=== PATIENT | female | born 1960 | race Two or more races ===

== ENCOUNTER 2024-07-22 15:12 | Outpatient (AMB) | payer MEDICAID, SELFPAY ==
[2024-07-22 15:20] VITALS: BP 143/74; PULSE 75; RESP 19; TEMP 36.4; O2SAT 96; BMI 31.9
--- NOTE | 2024-07-22 15:20 | ORTHONT_ITS ---
Vital signs 07/22/24 15:20 Height 1.55 m Height Method Stated Weight 76.714 kg Weight Measurement Method Standing Scale BMI 31.9 BP 143/74 H Blood Pressure Source Automatic Cuff Blood Pressure Location Right Upper Arm Position Sitting Respiration 19 Pulse 75 Pulse Source Monitor Temp 97.6 F Temp Source Temporal Artery Scan Pulse Oximetry (%) 96 Oxygen Delivery Method Room Air Med/Allergies Allergies & Medications Allergies NKA* Allergy (Uncoded 07/22/24 15:21) Medication Reconciliation lisinopril 20 mg tablet 20 mg PO QDAY #0 tabs 05/09/14 [History Confirmed 07/22/24] lovastatin 20 mg tablet (Mevacor) 20 mg PO HS #0 tabs 05/09/14 [History Confirmed 07/22/24] metformin 500 mg tablet (Glucophage) 500 mg PO BIDAC #0 tabs 05/09/14 [History Confirmed 07/22/24] amlodipine 5 mg tablet 5 mg PO QDAY 01/01/24 [History Confirmed 07/22/24] dapagliflozin propanediol 10 mg tablet (Farxiga) 10 mg PO QDAY 01/01/24 [History Confirmed 07/22/24] meloxicam 7.5 mg tablet 7.5 mg PO QDAY #45 tabs 01/01/24 [Rx Confirmed 07/22/24] Exam Exam Patient is in no acute distress and is cooperative with the examination today. Breathing is nonlabored. In no respiratory distress. Bilateral extremities were evaluated and demonstrates sensation intact to light touch. Palpable pedal pulses are present. No significant edema is present. Bilateral hips were examined. The patient has no pain with log roll of the hips. Internal rotation to 30 degrees and external rotation to 30 degrees is painless. Negative FADIR. The left knee was examined. The left knee is in [varus] alignment. Range of motion from [0-115] degrees. Knee is stable to varus and valgus as well as AP translation with <5mm. Patient has a [negative] McMurrays. There is [no] pain with patellofemoral compression and [no] crepitus noted. The knee is [tender] to palpation [medially]. The right knee was also examined. The right knee is in [varus] alignment. Range of motion from [0-120] degrees. Knee is stable to varus and valgus as well as AP translation with <5mm. Patient has a [negative] McMurrays. There is [no] pain with patellofemoral compression and [no] crepitus noted. The knee is [tender] to palpation [medially]. There is demonstrates bilateral joint space narrowing medially and laterally. There is complete obliteration of the medial joint space. Varus deformity is present Assessment and Plan Problem List (1) Degenerative arthritis of knee, bilateral: Status: Acute Plan: Patient Is a pleasant 63-year-old female with bilateral knee pain and bilateral knee arthritis. She would like to consider surgery she is failed conservative treatment with injections, and anti-inflammatories. We thus discussed total knee replacement is a reasonable option, she reports she wants to start on the right as this hurts more. The nature and purpose of the total knee replacement, alternative method(s) of treatment, the material risks involved, and the possibility of complications were fully explained to the patient. The patient does NOT have any of the following contraindications to TKA: - Active infection of the knee joint, OR - Active systemic bacteremia, OR - Active skin infection or open wound at surgical site, OR - Neuropathic arthritis, OR - Severe, rapidly progressive neurological disease, OR - Severe medical condition that makes risks of surgery outweigh the potential benefit The patient was told the most common risks and complications associated with a total knee replacement include, but are not limited to: blood clots in the leg, fatal pulmonary embolism, dislocation of the prosthesis, intraoperative and postoperative fractures of the femur or tibia, infection, failure of the prosthesis or grafting materials, complications from anesthesia, reactions to blood transfusions, postoperative leg length inequality, instability of the knee replacement, nerve damage or injury, vascular injury, delayed wound healing, infection, other injury or even . In addition, there are risks associated with anesthesia given during this operation. Also, the patient was told that after undergoing a total knee replacement there may still be persistent pain or disability. The patient was informed that the success of this operation in part depends upon the mechanical devices which are going to be implanted and that these devices can fail or malfunction, and may need to be repaired or replaced and there are no guarantees as to the longevity of this device or its parts and that it or its parts could fail prematurely. The patient was also notified that during the course of surgery, there may be a need to use bone graft from donors, and that any bone graft used will be carefully screened for communicable diseases, including AIDS, hepatitis, Brett-Creutzfeldt, or other diseases, but despite the screening procedures, there is a small chance that they could contract one of these diseases. Finally, the patient was asked to follow completely and fully with all advice and recommended treatments, and that recovery and ultimate outcome are affected by their compliance with recommended treatment. We discussed the risks, benefits and treatment alternatives, and the patient is interested in proceeding with surgery. We will try to set this up as expeditiously as possible. Office Procedures GNS Level of Care Nursing/Assessment Patient Status: Established Patient Nursing Assessment/Reassesment: Medication Reconciliation, Update PMH in EMR and Vital Signs Coordination of Care: Complex Care and Chronic Disease 1-5, Education Complex Pt/Fam, Consent,records obtained, informed consent, Results/Orders obtained and Staff clarify orders Special Needs: Language special needs Established Patient Charge Established Patient Point Assignment: 95 Established Patient Point Charge: EP Level 3 (80-115) MA Intake Visit Data Collection New Patient or Established: Established Patient (seen at [facility] within 3 years) Reason for Visit:: 3 MONTH FOLLOW UP Seen by Clinical Staff ONLY (RN/MA): No Verbal consent obtained for Telemed visit?: No Senior Sales Associate Required: Yes PCP or OBGYN visit in last 3 months: Yes Hx Now: No Do You Feel Safe at Home: Yes Authorities Contacted: N/A Questionairres Past Medical History Past Medical History Have you ever been diagnosed with any of the following: Neurological Problems Transient Ischemic Attacks (TIA): No Seizures: No Cardiology Problems Hypercholesterolemia: Yes Congestive Heart Failure: No Hypertension: Yes Respiratory Problems Chronic Obstructive Pulmonary Disease (COPD): No Smoking: No Smoking Exposure: No Genital/Urinary Problems Renal Disease: No Endocrine Problems Diabetes Mellitus Type 1: No Diabetes Mellitus Type 2: Yes Other Problems Blood Transfusions: No Blood Transfusion Reaction: No Anesthesia Reactions: No Chicken Pox: Yes Subjective Visit Visit for: follow up visit, knee and injections Immunization / Flu Flu Vaccine in the Last 12 Months: No Flu Vaccine Exclusion Criteria: No Exclusion Criteria History of Present Illness Chief complaint: F/U ON KNEE INJECTIONS Patient is a 64-year-old female with bilateral knee pain. The pain is affecting her quality life and happiness. She would like to start On the right side. She has tried anti-inflammatories, injections, and physical therapy. She reports the pain is affecting her quality life and happiness and single thus like to proceed with surgery Pain Pain level (0-10): 0 Ambulatory data Ambulatory device: none Treatments Improvement with previous injections: No Improvement with PT: No Improvement with NSAIDS: n/a Review of Systems Review of Systems: All systems negative unless otherwise noted in HPI.
== END 2024-07-22 15:35 | disposition home or self-care (01) ==
LOC: HODSRG 15:12
PROVIDERS: PCP Physician Assistant; Referring Provider Physician Assistant; Supervising Provider Orthopaedic Surgery Adult Reconstructive Orthopaedic Surgery; Visit Provider Orthopaedic Surgery Adult Reconstructive Orthopaedic Surgery
DX: M17.0 Bilateral primary osteoarthritis of knee (principal); M25.562 Pain in left knee; M25.561 Pain in right knee; I10 Essential (primary) hypertension; E78.00 Pure hypercholesterolemia, unspecified; E11.9 Type 2 diabetes mellitus without complications
CPT/HCPCS: 99213; G0463

== ENCOUNTER → 2024-09-09 | Outpatient (CLI) | payer MEDICAID, SELFPAY ==
--- NOTE | 2024-09-09 14:30 | XR_ITS ---
Examination: CT right lower extremity, without contrast. 2-D sagittal reconstructions. 2-D coronal reconstructions. 3-D reconstructions. Date and time of exam:September 01, 2024 1525 hrs. Indications: Right knee pain several years diagnosis osteoarthritis CTDI: vol (mGy):3122 DLP: (mGycm):1087 Technique: Multiple 1.25 mm axial sections of the right lower extremity without intravenous contrast have been obtained. 2-D sagittal and coronal reconstructions have been obtained. 3-D reconstructions have been obtained. Low dose protocols were performed. One or more of the following dose reduction techniques were used; automated exposure control, adjustment of the mA and/or KV according to patient size, use of iterative reconstruction technique. Findings: Significant osteopenia Moderate narrowing right hip joint No right hip fracture or dislocation Advanced tricompartment osteoarthritis right knee, severe narrowing medial joint space No fracture No patellar dislocation Impression: Advanced tricompartment right knee osteoarthritis
== END | disposition home or self-care (01) ==
LOC: CCTX 13:04
PROVIDERS: PCP Physician Assistant; Referring Provider Orthopaedic Surgery Adult Reconstructive Orthopaedic Surgery; Visit Provider Orthopaedic Surgery Adult Reconstructive Orthopaedic Surgery
DX: M17.12 Unilateral primary osteoarthritis, left knee (principal); M17.11 Unilateral primary osteoarthritis, right knee
CPT/HCPCS: 73700

== ENCOUNTER 2024-09-20 10:56 | Outpatient (AMB) | payer MEDICAID, SELFPAY ==
[2024-09-20 11:11] VITALS: BP 121/75; PULSE 64; RESP 18; TEMP 36.3; O2SAT 96; BMI 31.3
--- NOTE | 2024-09-20 11:11 | ORTHONT_ITS ---
Vital signs 09/20/24 11:11 Height 1.55 m Height Method Stated Weight 75.325 kg Weight Measurement Method Standing Scale BMI 31.3 BP 121/75 Blood Pressure Source Automatic Cuff Blood Pressure Location Right Upper Arm Position Sitting Respiration 18 Pulse 64 Pulse Source Monitor Temp 97.3 F Temp Source Temporal Artery Scan Pulse Oximetry (%) 96 Oxygen Delivery Method Room Air Med/Allergies Allergies & Medications Allergies NKA* Allergy (Uncoded 09/20/24 11:12) Medication Reconciliation lisinopril 20 mg tablet 20 mg PO QDAY #0 tabs 05/09/14 [History Confirmed 09/20/24] lovastatin 20 mg tablet (Mevacor) 20 mg PO HS #0 tabs 05/09/14 [History Confirmed 09/20/24] metformin 500 mg tablet (Glucophage) 500 mg PO BIDAC #0 tabs 05/09/14 [History Confirmed 09/20/24] amlodipine 5 mg tablet 5 mg PO QDAY 01/01/24 [History Confirmed 09/20/24] dapagliflozin propanediol 10 mg tablet (Farxiga) 10 mg PO QDAY 01/01/24 [History Confirmed 09/20/24] meloxicam 7.5 mg tablet 7.5 mg PO QDAY #45 tabs 01/01/24 [Rx Confirmed 09/20/24] Exam Exam Patient is in no acute distress and is cooperative with the examination today. Breathing is nonlabored. In no respiratory distress. Bilateral extremities were evaluated and demonstrates sensation intact to light touch. Palpable pedal pulses are present. No significant edema is present. Bilateral hips were examined. The patient has no pain with log roll of the hips. Internal rotation to 30 degrees and external rotation to 30 degrees is painless. Negative FADIR. The left knee was examined. The left knee is in [varus] alignment. Range of motion from [0-115] degrees. Knee is stable to varus and valgus as well as AP translation with <5mm. Patient has a [negative] McMurrays. There is [no] pain with patellofemoral compression and [no] crepitus noted. The knee is [tender] to palpation [medially]. The right knee was also examined. The right knee is in [varus] alignment. Range of motion from [0-120] degrees. Knee is stable to varus and valgus as well as AP translation with <5mm. Patient has a [negative] McMurrays. There is [no] pain with patellofemoral compression and [no] crepitus noted. The knee is [tender] to palpation [medially]. There is demonstrates bilateral joint space narrowing medially and laterally. There is complete obliteration of the medial joint space. Varus deformity is present Assessment and Plan Problem List (1) Degenerative arthritis of knee, bilateral: Status: Acute Plan: Patient Is a pleasant 63-year-old female with bilateral knee pain and bilateral knee arthritis. She would like to consider surgery she is failed conservative treatment with injections, and anti-inflammatories. We thus discussed total knee replacement is a reasonable option, she reports she wants to start on the right as this hurts more. The nature and purpose of the total knee replacement, alternative method(s) of treatment, the material risks involved, and the possibility of complications were fully explained to the patient. The patient does NOT have any of the following contraindications to TKA: - Active infection of the knee joint, OR - Active systemic bacteremia, OR - Active skin infection or open wound at surgical site, OR - Neuropathic arthritis, OR - Severe, rapidly progressive neurological disease, OR - Severe medical condition that makes risks of surgery outweigh the potential benefit The patient was told the most common risks and complications associated with a total knee replacement include, but are not limited to: blood clots in the leg, fatal pulmonary embolism, dislocation of the prosthesis, intraoperative and postoperative fractures of the femur or tibia, infection, failure of the prosthesis or grafting materials, complications from anesthesia, reactions to blood transfusions, postoperative leg length inequality, instability of the knee replacement, nerve damage or injury, vascular injury, delayed wound healing, infection, other injury or even . In addition, there are risks associated with anesthesia given during this operation. Also, the patient was told that after undergoing a total knee replacement there may still be persistent pain or disability. The patient was informed that the success of this operation in part depends upon the mechanical devices which are going to be implanted and that these devices can fail or malfunction, and may need to be repaired or replaced and there are no guarantees as to the longevity of this device or its parts and that it or its parts could fail prematurely. The patient was also notified that during the course of surgery, there may be a need to use bone graft from donors, and that any bone graft used will be carefully screened for communicable diseases, including AIDS, hepatitis, Brett-Creutzfeldt, or other diseases, but despite the screening procedures, there is a small chance that they could contract one of these diseases. Finally, the patient was asked to follow completely and fully with all advice and recommended treatments, and that recovery and ultimate outcome are affected by their compliance with recommended treatment. We discussed the risks, benefits and treatment alternatives, and the patient is interested in proceeding with surgery. We will try to set this up as expeditiously as possible. Office Procedures GNS Level of Care Nursing/Assessment Patient Status: Established Patient Nursing Assessment/Reassesment: Medication Reconciliation, Update PMH in EMR and Vital Signs Coordination of Care: Complex Care and Chronic Disease 1-5, Education Complex Pt/Fam, Consent,records obtained, informed consent, Results/Orders obtained and Staff clarify orders Special Needs: Language special needs Established Patient Charge Established Patient Point Assignment: 95 Established Patient Point Charge: Level 3 (80-115) MA Intake Visit Data Collection New Patient or Established: Established Patient (seen at [facility] within 3 years) Reason for Visit:: PRE OP R TKA 09/26 SX DATE Seen by Clinical Staff ONLY (RN/MA): No Engineering Psychologist Required: Yes PCP or OBGYN visit in last 3 months: Yes Hx Now: No Do You Feel Safe at Home: Yes Authorities Contacted: N/A Questionairres Past Medical History Past Medical History Have you ever been diagnosed with any of the following: Neurological Problems Transient Ischemic Attacks (TIA): No Seizures: No Cardiology Problems Hypercholesterolemia: Yes Congestive Heart Failure: No Hypertension: Yes Respiratory Problems Chronic Obstructive Pulmonary Disease (COPD): No Smoking: No Smoking Exposure: No Genital/Urinary Problems Renal Disease: No Endocrine Problems Diabetes Mellitus Type 1: No Diabetes Mellitus Type 2: Yes Other Problems Blood Transfusions: No Blood Transfusion Reaction: No Anesthesia Reactions: No Chicken Pox: Yes Subjective Visit Visit for: follow up visit and knee Immunization / Flu Flu Vaccine in the Last 12 Months: No Flu Vaccine Exclusion Criteria: No Exclusion Criteria History of Present Illness Chief complaint: F/U ON KNEE INJECTIONS Patient is a 64-year-old female with bilateral knee pain. The pain is affecting her quality life and happiness. She would like to start On the right side. She has tried anti-inflammatories, injections, and physical therapy. She reports the pain is affecting her quality life and happiness. She is scheduled for surgery next week and would like to go home if possible. Pain Pain level (0-10): 6 Pain duration: ALL DAY Pain location: inside (medial) and anterior Pain quality: dull, aching and burning Pain timing: increases with activity Ambulatory data Ambulatory device: none Treatments Improvement with previous injections: No Improvement with PT: No Improvement with NSAIDS: no Review of Systems Review of Systems: All systems negative unless otherwise noted in HPI.
== END 2024-09-20 11:17 | disposition home or self-care (01) ==
LOC: HODSRG 10:56
PROVIDERS: PCP Physician Assistant; Referring Provider Physician Assistant; Supervising Provider Orthopaedic Surgery Adult Reconstructive Orthopaedic Surgery; Visit Provider Orthopaedic Surgery Adult Reconstructive Orthopaedic Surgery
DX: M17.0 Bilateral primary osteoarthritis of knee (principal); I10 Essential (primary) hypertension; E78.00 Pure hypercholesterolemia, unspecified
CPT/HCPCS: 99213; G0463

== ENCOUNTER 2024-09-26 05:30 | Day surgery (SDC) | payer MEDICAID, SELFPAY ==
[2024-09-22 09:18] VITALS: BMI 30.4
[2024-09-22 10:58] LABS: Basophils # (Auto) 0.1 Thou/mm3 (0.0-0.2); Basophils % (Auto) 1 % (0-2.5); Eosinophils # (Auto) 0.1 Thou/mm3 (0.0-0.5); Eosinophils % (Auto) 1 % (0-10); Hematocrit 40.3 % (36.0-46.0); Hemoglobin 12.7 g/dL (12.0-16.0); Immature Granulocytes % (Auto) 1 % (0-0); Immature Granulocytes Auto 0.07 Thou/mm3 (0.00-0.00); Lymphocytes # (Auto) 3.5 Thou/mm3 (1.0-4.8); Lymphocytes % (Auto) 36 % (10-50); Mean Corpuscular HGB Conc 31.5 g/dl (31.0-37.0); Mean Corpuscular Hemoglobin 27.7 pg (25.0-35.0); Mean Corpuscular Volume 88 fL (80-100); Monocytes # (Auto) 0.9 Thou/mm3 (0.0-0.8); Monocytes % (Auto) 9 % (0-12); Neutrophils # (Auto) 5.3 Thou/mm3 (1.8-7.7); Neutrophils % (Auto) 53 % (37-80); Nucleated Red Blood Cell % 0 /100 WBC (0); Platelet Count 283 Thou/mm3 (140-440); RDW Standard Deviation 46.5 fL (36.4-46.3); Red Blood Count 4.58 Miln/mm3 (4.00-5.20); White Blood Count 9.9 Thou/mm3 (3.6-11.0)
[2024-09-22 11:12] LABS: INR 0.9 (0.9-1.3); Partial Thromboplastin Time 23.6 Seconds (22.0-36.0); Prothrombin Time 10.1 Seconds (9.0-12.2)
[2024-09-22 11:27] LABS: Alanine Aminotransferase 34 U/L (10-49); Albumin, Serum 4.3 gm/dL (3.4-4.8); Albumin/Globulin Ratio 1.8 (1.2-2.2); Alkaline Phosphatase 121 U/L (46-116); Anion Gap 10 (7-16); Aspartate Amino Transferase 25 U/L (0-34); BUN/Creatinine Ratio 29 Ratio (12-20); Bilirubin,Total 0.8 mg/dL (0.3-1.2); Blood Urea Nitrogen 20 mg/dL (9-23); Calcium 9.7 mg/dL (8.3-10.6); Calcium (Corrected) 9.7 mg/dL (8.5-10.1); Carbon Dioxide 25.4 mMol/L (20.0-31.0); Chloride 110 mMol/L (98-107); Creatinine (Component) 0.7 mg/dL (0.6-1.3); Estimated Creatinine Clearance 77.3 mL/min (>60); Globulin 2.4 gm/dL (2.3-3.5); Glucose 109 mg/dL (74-106); Osmolality,Calculated 292 (275-295); Potassium 4.2 mMol/L (3.4-5.1); Sodium 145 mMol/L (136-145); Total Protein 6.7 gm/dL (5.7-8.2); eGFR > 60 See Note
[2024-09-26] VITALS (17 sets, daily range): BP systolic 114–150; BP diastolic 64–90; PULSE 58–80; RESP 12–20; TEMP 36.1–37.2; O2SAT 92–99; BMI 33.0
[2024-09-26] MEDS: MELOXICAM 7.5 MG TABLET PO (07:37)
[2024-09-26] MEDS: RINGERS LACTATED 1000 ML 1,000 ML 20 ML IV (07:38)
[2024-09-26] MEDS: ACETAMINOPHEN 325 MG TABLET 650 MG PO (07:38)
[2024-09-26] MEDS: PREGABALIN 75 MG CAPSULE PO (07:38)
--- NOTE | 2024-09-26 07:47 | SUR.PREOP ---
Patient expressed gratitude for prayer before their procedure.
--- NOTE | 2024-09-26 08:05 | SUR.PREOP ---
Patient expressed gratitude for prayer before their procedure.
--- NOTE | 2024-09-26 09:26 | ESOP_ITS ---
Date of Procedure 09/26/24 Pre Op Diagnosis right knee osteoarthritis Post Op Diagnosis right knee osteoarthritis Procedure right total knee replacement gabi Findings full thickness cartilage loss and osteophytes Procedure Description Indication: The patient is a 64 year old who has a long history of right knee pain. X-rays show degenerative arthritis involving the knee. Over the past several years the patient has had increasing pain, progressive limitation in function. He has failed conservative measures including activity modification, physical therapy, injections, anti-inflammatories, and assistive devices. After a lengthy discussion of the risks and benefits, the patient presents now for total knee replacement. The nature and purpose of the total knee replacement, alternative method(s) of treatment, the material risks involved, and the possibility of complications were fully explained to the patient. The patient was told the most common risks and complications associated with a total knee replacement include, but are not limited to blood clots in the leg, fatal pulmonary embolism, dislocation of the prosthesis, intraoperative and postoperative fractures of the femur or tibia, infection, failure of the prosthesis or grafting materials, complications from anesthesia, reactions to blood transfusions, postoperative leg length inequality, instability of the knee replacement, nerve damage or injury, vascular injury, delayed wound healing, infections, other injury or even . In addition, there are risks associated with anesthesia given during this operation, temporary or permanent numbness on the skin lateral to the incision can be a complication unique to total knee surgery, and kneeling can be painful after knee replacement surgery. Also, the patient was told that after undergoing a total knee replacement there may still be pain or disability. We discussed with the patient that we will be using a robot-assisted technology. We discussed that there is a possibility of converting to manual instrumentation. The patient was informed that the success of this operation in part depends upon the mechanical devices which are going to be implanted and that these devices can fail or malfunction, and may need to be repaired or replaced and there are no guarantees as to the longevity of this device or its part and that it or its parts could fail prematurely. Finally, the patient was asked to follow completely and fully with all advice and recommended treatments, and that recovery and ultimate outcome are affected by their compliance with recommended treatment. Surgical technique: Patient was marked and consented in the pre-operative area. The patient was brought to the operating room and placed on the operating table in a supine position. Prior to positioning, a timeout procedure was performed between the surgeon, the anesthesiologist, and the nursing staff where the patient and the operative side were identified and confirmed. After adequate general anesthetic was obtained, the right lower extremity was prepped and draped in the usual sterile fashion. A weight based dose of Cefazolin were administered within 1 hour prior to incision. The robot was preregistered and calirated before the incision. The extremity was exsanguinated with an esmarch badge and tourniquet inflated to 250mmHg. A midline incision was made. A median parapatellar arthrotomy was made. The patella was subluxed laterally. A medial release was performed to expose the medial tibia. His femoral and tibial pins were placed through an intra incisional manner for both cases. Every effort was made to ensure that the distalmost aspect of the pin was hung in the second cortex. The arrays were then tightened several times to ensure that it was fixed for the remainder of the case. Both femoral and tibial checkpoints were then placed. We then went through the registration process of the bone. We then assessed the knee deformity and attempted to correct it. We also used the robot to aid in judging laxity in both extension and flexion. Final based on laxity and alignment we changed the preoperative assessment to obtain proper proper implant positioning and to correct deformity. Attention was then placed to the tibia. We made a tibial cut using the robot ensuring that both the MCL and the patella tendon were protected with retractors. We then went to the femur and made the posterior cut followed by the anterior cut and the anterior chamfer. The bone was then removed and we made a distal femur cut and a posterior chamfer cut. We verified all cuts. A trial reduction was performed with a size 2 femoral component and a size 2 keeled tibial component. The patella tracked centrally, and no lateral retinacular release was necessary. The trial implants were removed. The arrays, pins, and checkpoints were all removed. We performed a verification that all pins were removed. The cut bone surfaces were lavaged. A size 2 right femoral component, a size 2 keeled tibial component were impacted into position. The knee was felt to be well balanced in the sagittal and coronal plane. The final [2x12] mm cruciate- substituting articular insert was impacted into the tibial tray. The knee was brought out to full extension, flexed up to 120 degrees. It was stable to varus and valgus stress and appropriately balanced in flexion and extension. The wounds were copiously irrigated following deflation of tourniquet. The medial retinaculum was reapproximated with #1 vicryl and quill. The subcutaneous tissues were closed with 0 and 2-0 interrupted Vicryl. The skin was closed with 3-0 Monofilament V loc suture. A sterile dressing was applied. The patient was transferred to a bed and brought to recovery in stable condition. The patient tolerated the procedure well. There were no intraoperative complications. Sponge and needle counts were correct times 2. As the attending surgeon, I attest I was present and performed the entire operation. Grafts/Implants Size 2 CR Femur Size 2 Tibia 11mm poly CS Anesthesia GETA Implants clinton Pathology / specimen None Pathology comment: none Estimated Blood Loss 150 Condition Stable Disposition same day Surgeon Surendra Smith MD Surgical Staff Operation Date: 09/26/24 07:30 Case Staff Anesthesiologist: Christiano Ritter RN First Assistant: Saloni Avery
--- NOTE | 2024-09-26 09:31 | XR_ITS ---
Examination: Right knee 2 views TECHNIQUE: AP lateral right knee 2 views Exam date and time: September 26, 2024 0932 hours INDICATIONS: Postop total right knee arthroplasty FINDINGS: Prominent osteopenia. Total right knee arthroplasty. Satisfactory alignment No fracture IMPRESSION: Total right knee arthroplasty with satisfactory alignment
--- NOTE | 2024-09-26 09:53 | SUR.PHASEI ---
0953: Pt. arrived with oral airway in place, vitals stable, breathing unlabored, no signs of distress, dressing to right knee CDI, no active bleed noted, bilateral dorsalis pedis pulses strong and regular, cap refill to bilateral toes less than 3 seconds, report received from Cosmo HERNANDEZ and MD Ritter.
[2024-09-26] MEDS: oxyCODONE HCL 5 MG IR TAB PO (10:42)
[2024-09-26] MEDS: CYCLObenzaPRINE 5 MG TABLET 10 MG PO (10:42)
--- NOTE | 2024-09-26 12:20 | SUR.PHASEII ---
report from nurse holloway. pt alert and oriented. vss. breathing even and unlabored on room air. tolerating po liquid. daughter at bedside. dressing cdi.
--- NOTE | 2024-09-26 13:01 | SUR.PHASEII ---
pt remains unchanged. vss. dressing cdi. right leg remains heaving. report to nurse jewel.
--- NOTE | 2024-09-26 14:00 | SUR.PHASEII ---
1400: Pt. AAOx4, vitals stable, breathing unlabored, no complaint of pain or nausea, dressing to right knee CDI, no active bleed noted, pt. tolerated physical therapy well, pt. tolerated sips of water well, cap refill to bilateral feet less than 3 seconds, bilateral dorsalis pedis pulses strong and regular, gave discharge instructions to the pt. and her ride, both verbalized understanding and had no further questions. Pt. left with all personal belongings.
== END 2024-09-26 14:00 | disposition home or self-care (01) ==
PROVIDERS: Anesthesiology; PCP Physician Assistant; Referring Provider Orthopaedic Surgery Adult Reconstructive Orthopaedic Surgery; Visit Provider Orthopaedic Surgery Adult Reconstructive Orthopaedic Surgery
PROC: (CPT 27447; principal; 2024-09-26 07:30)
DX: M17.11 Unilateral primary osteoarthritis, right knee (principal); M25.761 Osteophyte, right knee
CPT/HCPCS: 27447; 20985; 36415; 73560; 80053; 85025; 85610; 85730; 97162; A4217; C1713; C1776; J0690; J1100; J1885; J2250; J2405; J2704; J2795; J3010; J3490; J7030; J7120; J7999; A4648; A4649; A9270

== ENCOUNTER 2024-10-11 10:32 | Outpatient (AMB) | payer MEDICAID, SELFPAY ==
[2024-10-11 11:01] VITALS: BP 128/84; PULSE 93; RESP 18; TEMP 36.4; O2SAT 94; BMI 32.8
--- NOTE | 2024-10-11 11:01 | PD.ORTHCLVIS ---
Vital signs 10/11/24 11:01 Height 1.52 m Height Method Stated Weight 75.92 kg Weight Measurement Method Standing Scale BMI 32.8 BP 128/84 Blood Pressure Source Automatic Cuff Blood Pressure Location Left Upper Arm Position Sitting Respiration 18 Pulse 93 Pulse Source Monitor Temp 97.6 F Temp Source Temporal Artery Scan Pulse Oximetry (%) 94 L Oxygen Delivery Method Room Air Med/Allergies Allergies & Medications Allergies No Known Allergies Allergy (Verified 10/11/24 11:05) Medication Reconciliation lovastatin 20 mg tablet (Mevacor) 20 mg PO HS #0 tabs 05/09/14 [History Confirmed 10/11/24] metformin 500 mg tablet (Glucophage) 500 mg PO BIDAC #0 tabs 05/09/14 [History Confirmed 10/11/24] amlodipine 5 mg tablet 5 mg PO QDAY 01/01/24 [History Confirmed 10/11/24] dapagliflozin propanediol 10 mg tablet (Farxiga) 10 mg PO QDAY 01/01/24 [History Confirmed 10/11/24] dapagliflozin propanediol 10 mg tablet (Farxiga) 10 mg PO QDAY 09/22/24 [History Confirmed 10/11/24] lisinopril 40 mg tablet 40 mg PO QDAY 09/22/24 [History Confirmed 10/11/24] acetaminophen 500 mg tablet (Acetaminophen Extra Strength) 1,000 mg (2 x 500 mg) PO Q6H PRN pain #90 tabs 09/26/24 [Rx Confirmed 10/11/24] acetaminophen 500 mg tablet (Acetaminophen Extra Strength) 1,000 mg (2 x 500 mg) PO Q6H PRN pain #90 tabs 09/28/24 [Rx Confirmed 10/11/24] aspirin 81 mg tablet,delayed release 81 mg PO BID #60 tabs 09/28/24 [Rx Confirmed 10/11/24] doxycycline hyclate 100 mg tablet 100 mg PO BID #14 tabs 09/28/24 [Rx Confirmed 10/11/24] gabapentin 300 mg capsule 300 mg PO .qhs #30 caps 09/28/24 [Rx Confirmed 10/11/24] sennosides 8.6 mg-docusate sodium 50 mg tablet (Senna-S) 1 tab-cap PO QDAY #30 tabs 09/28/24 [Rx Confirmed 10/11/24] cyclobenzaprine 5 mg tablet 5 mg PO QHS PRN muscle spasm #30 tabs 10/11/24 [Rx Confirmed 10/11/24] oxycodone 5 mg tablet 5 mg PO Q6H PRN pain #28 tabs 10/11/24 [Rx Confirmed 10/11/24] Exam Exam Patient is in no acute distress and is cooperative with the examination today. Breathing is nonlabored. In no respiratory distress. Bilateral extremities were evaluated and demonstrates sensation intact to light touch. Palpable pedal pulses are present. No significant edema is present. Bilateral hips were examined. The patient has no pain with log roll of the hips. Internal rotation to 30 degrees and external rotation to 30 degrees is painless. Negative FADIR. Right knee incisions clean dry intact Assessment and Plan Problem List (1) Degenerative arthritis of knee, bilateral: Status: Acute Plan: Patient Is a pleasant 63-year-old female with bilateral knee pain and bilateral knee arthritis. She is doing well status post right total knee replacement We recommend physical therapy and continued DVT prophylaxis Office Procedures GNS Level of Care Nursing/Assessment Patient Status: Established Patient Nursing Assessment/Reassesment: Medication Reconciliation, Update PMH in EMR and Vital Signs Coordination of Care: Complex Care and Chronic Disease 1-5, Education Complex Pt/Fam, Consent,records obtained, informed consent, Results/Orders obtained and Staff clarify orders Established Patient Charge Established Patient Point Assignment: 95 Established Patient Point Charge: EP Level 3 (80-115) MA Intake Visit Data Collection New Patient or Established: Established Patient (seen at [facility] within 3 years) Reason for Visit:: 2 WEEK POST OP R TKA Seen by Clinical Staff ONLY (RN/MA): No Emergency Response Technician Required: Yes PCP or OBGYN visit in last 3 months: Yes Hx Now: No Do You Feel Safe at Home: Yes Authorities Contacted: N/A Questionairres Past Medical History Past Medical History Have you ever been diagnosed with any of the following: Neurological Problems Transient Ischemic Attacks (TIA): No Seizures: No Cardiology Problems Hypercholesterolemia: Yes Congestive Heart Failure: No Hypertension: Yes Respiratory Problems Chronic Obstructive Pulmonary Disease (COPD): No Smoking: No Smoking Cessation Counseling: No Smoking Exposure: No Stomache/Intestinal Problems Hepatitis: No Obesity: Yes Genital/Urinary Problems Renal Disease: No Reproductive Problems Previous Pregnancies: Yes Musculoskeletal Problems Arthritis: Yes Endocrine Problems Diabetes Mellitus Type 1: No Diabetes Mellitus Type 2: Yes Other Problems Hospitalization: Yes Shingles: No Blood Transfusions: No Blood Transfusion Reaction: No Anesthesia Reactions: No Chicken Pox: Yes Cancer: No Subjective Visit Visit for: follow up visit and post op #1 Immunization / Flu Flu Vaccine in the Last 12 Months: No Flu Vaccine Exclusion Criteria: No Exclusion Criteria History of Present Illness Chief complaint: F/U ON KNEE INJECTIONS Patient is a 64-year-old female with bilateral knee pain. She is doing well status post right total knee replacement. Pain is minimal Pain Pain level (0-10): 5 Pain duration: WITH MOVEMENT Pain location: anterior Pain quality: dull and aching Pain timing: increases with activity Ambulatory data Ambulatory device: walker Treatments Improvement with previous injections: No Improvement with PT: No Improvement with NSAIDS: no Review of Systems Review of Systems: All systems negative unless otherwise noted in HPI.
== END 2024-10-11 11:11 | disposition home or self-care (01) ==
LOC: HODSRG 10:32
PROVIDERS: PCP Physician Assistant; Referring Provider Physician Assistant; Supervising Provider Orthopaedic Surgery Adult Reconstructive Orthopaedic Surgery; Visit Provider Orthopaedic Surgery Adult Reconstructive Orthopaedic Surgery
DX: M17.0 Bilateral primary osteoarthritis of knee (principal); M25.562 Pain in left knee; M25.561 Pain in right knee; Z96.651 Presence of right artificial knee joint; I10 Essential (primary) hypertension; E78.00 Pure hypercholesterolemia, unspecified; E11.9 Type 2 diabetes mellitus without complications
CPT/HCPCS: 99213; G0463

== ENCOUNTER → 2024-10-28 | Outpatient (CLI) | payer MEDICAID, SELFPAY ==
--- NOTE | 2024-10-28 09:06 | XR_ITS ---
Examination: Knee, right , 3 views Technique: Knee AP, lateral, oblique 3 views standing Date and time of exam: October 28, 2024 0912 hours INDICATIONS: Status post knee arthroplasty one month ago, September 26, 2024 FINDINGS: Total right knee arthroplasty. Satisfactory alignment Prominent osteopenia Moderate knee effusion IMPRESSION: Total right knee arthroplasty with satisfactory alignment
== END | disposition home or self-care (01) ==
LOC: CDIM 09:01
PROVIDERS: Referring Provider Orthopaedic Surgery Adult Reconstructive Orthopaedic Surgery; Visit Provider Orthopaedic Surgery Adult Reconstructive Orthopaedic Surgery
DX: M17.11 Unilateral primary osteoarthritis, right knee (principal); Z96.651 Presence of right artificial knee joint
CPT/HCPCS: 73564

== ENCOUNTER 2024-11-08 10:45 | Outpatient (AMB) | payer MEDICAID, SELFPAY ==
--- NOTE | 2024-11-08 11:15 | ORTHONT_ITS ---
Vital signs 11/08/24 11:16 Height 1.52 m Height Method Stated Weight 72.348 kg Weight Measurement Method Standing Scale BMI 31.3 BP 160/91 H Blood Pressure Source Automatic Cuff Blood Pressure Location Right Upper Arm Position Sitting Respiration 17 Pulse 85 Pulse Source Monitor Temp 97.3 F Temp Source Temporal Artery Scan Pulse Oximetry (%) 97 Oxygen Delivery Method Room Air Med/Allergies Allergies & Medications Allergies No Known Allergies Allergy (Verified 11/08/24 11:17) Medication Reconciliation lovastatin 20 mg tablet (Mevacor) 20 mg PO HS #0 tabs 05/09/14 [History Confirmed 11/08/24] metformin 500 mg tablet (Glucophage) 500 mg PO BIDAC #0 tabs 05/09/14 [History Confirmed 11/08/24] amlodipine 5 mg tablet 5 mg PO QDAY 01/01/24 [History Confirmed 11/08/24] dapagliflozin propanediol 10 mg tablet (Farxiga) 10 mg PO QDAY 01/01/24 [History Confirmed 11/08/24] dapagliflozin propanediol 10 mg tablet (Farxiga) 10 mg PO QDAY 09/22/24 [History Confirmed 11/08/24] lisinopril 40 mg tablet 40 mg PO QDAY 09/22/24 [History Confirmed 11/08/24] acetaminophen 500 mg tablet (Acetaminophen Extra Strength) 1,000 mg (2 x 500 mg) PO Q6H PRN pain #90 tabs 09/26/24 [Rx Confirmed 11/08/24] acetaminophen 500 mg tablet (Acetaminophen Extra Strength) 1,000 mg (2 x 500 mg) PO Q6H PRN pain #90 tabs 09/28/24 [Rx Confirmed 11/08/24] aspirin 81 mg tablet,delayed release 81 mg PO BID #60 tabs 09/28/24 [Rx Confirmed 11/08/24] doxycycline hyclate 100 mg tablet 100 mg PO BID #14 tabs 09/28/24 [Rx Confirmed 11/08/24] gabapentin 300 mg capsule 300 mg PO .qhs #30 caps 09/28/24 [Rx Confirmed 11/08] sennosides 8.6 mg-docusate sodium 50 mg tablet (Senna-S) 1 tab-cap PO QDAY #30 tabs 09/28/24 [Rx Confirmed 11/08/24] cyclobenzaprine 5 mg tablet 5 mg PO QHS PRN muscle spasm #30 tabs 10/11/24 [Rx Confirmed 11/08/24] oxycodone 5 mg tablet 5 mg PO Q6H PRN pain #28 tabs 10/11/24 [Rx Confirmed 11/08/24] Exam Exam Patient is in no acute distress and is cooperative with the examination today. Breathing is nonlabored. In no respiratory distress. Bilateral extremities were evaluated and demonstrates sensation intact to light touch. Palpable pedal pulses are present. No significant edema is present. Bilateral hips were examined. The patient has no pain with log roll of the hips. Internal rotation to 30 degrees and external rotation to 30 degrees is painless. Negative FADIR. Right knee incisions clean dry intact. ROM is 0-70 degrees X-rays demonstrate a cementless total knee replacement in good alignment and position. This is from 10/28/2024 Assessment and Plan Problem List (1) Degenerative arthritis of knee, bilateral: Status: Acute Plan: Patient Is a pleasant 63-year-old female with bilateral knee pain and bilateral knee arthritis. 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 She does not work with outpatient therapy. I discussed with her that she needs to improve her motion and start therapy. I will see her in 2 to 3 weeks. I discussed with her if the range of motion does not improve I would recommend a manipulation at this time. She has not really done much at home regarding therapy or home exercises unfortunately We will see her in 2 to 3 weeks for motion check Office Procedures GNS Level of Care Nursing/Assessment Patient Status: Established Patient Nursing Assessment/Reassesment: Medication Reconciliation, Update PMH in EMR and Vital Signs Coordination of Care: Complex Care and Chronic Disease 1-5, Consent,records obtained, informed consent, Education Simp Pt/Fam, Results/Orders obtained and Staff clarify orders Special Needs: Language special needs (FRENCH ) Established Patient Charge Established Patient Point Assignment: 90 Established Patient Point Charge: EP Level 3 (80-115) MA Intake Visit Data Collection New Patient or Established: Established Patient (seen at [facility] within 3 years) Reason for Visit:: 6 WK POST OP RT TKA Seen by Clinical Staff ONLY (RN/MA): No Aerial Lineman Required: Yes PCP or OBGYN visit in last 3 months: Yes Hx Now: No Do You Feel Safe at Home: Yes Authorities Contacted: N/A Questionairres Past Medical History Past Medical History Have you ever been diagnosed with any of the following: Neurological Problems Transient Ischemic Attacks (TIA): No Seizures: No Cardiology Problems Hypercholesterolemia: Yes Congestive Heart Failure: No Hypertension: Yes Respiratory Problems Chronic Obstructive Pulmonary Disease (COPD): No Smoking: No Smoking Cessation Counseling: No Smoking Exposure: No Stomache/Intestinal Problems Hepatitis: No Obesity: Yes Genital/Urinary Problems Renal Disease: No Reproductive Problems Previous Pregnancies: Yes Musculoskeletal Problems Arthritis: Yes Endocrine Problems Diabetes Mellitus Type 1: No Diabetes Mellitus Type 2: Yes Other Problems Hospitalization: Yes Shingles: No Blood Transfusions: No Blood Transfusion Reaction: No Anesthesia Reactions: No Chicken Pox: Yes Cancer: No Subjective Visit Visit for: follow up visit and post op #2 (6 WK POST OP RT TKA ) Immunization / Flu Flu Vaccine in the Last 12 Months: Yes Flu Vaccine Exclusion Criteria: Already Received History of Present Illness Chief complaint: F/U ON KNEE INJECTIONS Patient is a 64-year-old female with bilateral knee pain. She is doing well status post right total knee replacement. Pain is minimal but her knee is stiff. She is using a walker and ROM is 0-70 degrees. She has not started outpatient therapy yet and is supposed to start in 2 days. Personal History Red flag PMH: none Pain Pain level (0-10): 7 Pain duration: 3 WEEKS Pain location: anterior Pain quality: sharp and aching Pain timing: night Associated signs & symptoms: none Ambulatory data Ambulatory device: walker Walking distance (blocks): 0 Walking distance (minutes): 10 Treatments Number of previous injections: 2 Improvement with previous injections: Yes Number of Physical Therapy sessions: 5 Improvement with PT: No Improvement with NSAIDS: n/a Review of Systems Review of Systems: All systems negative unless otherwise noted in HPI.
[2024-11-08 11:16] VITALS: BP 160/91; PULSE 85; RESP 17; TEMP 36.3; O2SAT 97; BMI 31.3
== END 2024-11-08 11:25 | disposition home or self-care (01) ==
LOC: HODSRG 10:45
PROVIDERS: PCP Physician Assistant; Referring Provider Physician Assistant; Supervising Provider Orthopaedic Surgery Adult Reconstructive Orthopaedic Surgery; Visit Provider Orthopaedic Surgery Adult Reconstructive Orthopaedic Surgery
DX: M17.0 Bilateral primary osteoarthritis of knee (principal); M25.562 Pain in left knee; M25.561 Pain in right knee; Z96.651 Presence of right artificial knee joint; I10 Essential (primary) hypertension; E78.00 Pure hypercholesterolemia, unspecified
CPT/HCPCS: 99213; G0463

== ENCOUNTER 2024-11-24 10:00 | Outpatient (AMB) | payer MEDICAID, SELFPAY ==
[2024-11-24 10:10] VITALS: BP 143/85; PULSE 92; RESP 18; TEMP 36.3; O2SAT 97; BMI 30.9
--- NOTE | 2024-11-24 10:10 | ORTHONT_ITS ---
Vital signs 11/24/24 10:10 Height 1.52 m Height Method Stated Weight 71.469 kg Weight Measurement Method Standing Scale BMI 30.9 BP 143/85 H Blood Pressure Source Automatic Cuff Blood Pressure Location Right Upper Arm Position Sitting Respiration 18 Pulse 92 Pulse Source Monitor Temp 97.3 F Temp Source Temporal Artery Scan Pulse Oximetry (%) 97 Oxygen Delivery Method Room Air Med/Allergies Allergies & Medications Allergies No Known Allergies Allergy (Verified 11/24/24 10:11) Medication Reconciliation lovastatin 20 mg tablet (Mevacor) 20 mg PO HS #0 tabs 05/09/14 [History Confirmed 11/24/24] metformin 500 mg tablet (Glucophage) 500 mg PO BIDAC #0 tabs 05/09/14 [History Confirmed 11/24/24] amlodipine 5 mg tablet 5 mg PO QDAY 01/01/24 [History Confirmed 11/24/24] dapagliflozin propanediol 10 mg tablet (Farxiga) 10 mg PO QDAY 01/01/24 [History Confirmed 11/24/24] dapagliflozin propanediol 10 mg tablet (Farxiga) 10 mg PO QDAY 09/22/24 [History Confirmed 11/24/24] lisinopril 40 mg tablet 40 mg PO QDAY 09/22/24 [History Confirmed 11/24/24] acetaminophen 500 mg tablet (Acetaminophen Extra Strength) 1,000 mg (2 x 500 mg) PO Q6H PRN pain #90 tabs 09/26/24 [Rx Confirmed 11/24/24] acetaminophen 500 mg tablet (Acetaminophen Extra Strength) 1,000 mg (2 x 500 mg) PO Q6H PRN pain #90 tabs 09/28/24 [Rx Confirmed 11/24/24] aspirin 81 mg tablet,delayed release 81 mg PO BID #60 tabs 09/28/24 [Rx Confirmed 11/24/24] doxycycline hyclate 100 mg tablet 100 mg PO BID #14 tabs 09/28/24 [Rx Confirmed 11/24/24] gabapentin 300 mg capsule 300 mg PO .qhs #30 caps 09/28/24 [Rx Confirmed 11/24] sennosides 8.6 mg-docusate sodium 50 mg tablet (Senna-S) 1 tab-cap PO QDAY #30 tabs 09/28/24 [Rx Confirmed 11/24/24] cyclobenzaprine 5 mg tablet 5 mg PO QHS PRN muscle spasm #30 tabs 10/11/24 [Rx Confirmed 11/24/24] oxycodone 5 mg tablet 5 mg PO Q6H PRN pain #28 tabs 10/11/24 [Rx Confirmed 11/24/24] Exam Exam Patient is in no acute distress and is cooperative with the examination today. Breathing is nonlabored. In no respiratory distress. Bilateral extremities were evaluated and demonstrates sensation intact to light touch. Palpable pedal pulses are present. No significant edema is present. Bilateral hips were examined. The patient has no pain with log roll of the hips. Internal rotation to 30 degrees and external rotation to 30 degrees is painless. Negative FADIR. Right knee incisions clean dry intact. ROM is 0-95 degrees X-rays demonstrate a cementless total knee replacement in good alignment and position. This is from 10/28/2024 Assessment and Plan Problem List (1) Degenerative arthritis of knee, bilateral: Status: Acute Plan: Patient Is a pleasant 63-year-old female with bilateral knee pain and bilateral knee arthritis. 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 Her range of motion is significant improved and she can get to about 90 degrees. She would like to continue with physical therapy. We previously offered her a manipulation and she wants to continue with therapy We will see her in 3 weeks for motion check Office Procedures GNS Level of Care Nursing/Assessment Patient Status: Established Patient Nursing Assessment/Reassesment: Medication Reconciliation, Update PMH in EMR and Vital Signs Coordination of Care: Complex Care and Chronic Disease 1-5, Education Complex Pt/Fam, Consent,records obtained, informed consent, Results/Orders obtained and Staff clarify orders Special Needs: Language special needs Established Patient Charge Established Patient Point Assignment: 95 Established Patient Point Charge: EP Level 3 (80-115) MA Intake Visit Data Collection New Patient or Established: Established Patient (seen at [facility] within 3 years) Reason for Visit:: F/U STIFFNESS Seen by Clinical Staff ONLY (RN/MA): No Verbal consent obtained for Telemed visit?: No Director Of Convention Services Required: Yes PCP or OBGYN visit in last 3 months: Yes Hx Now: No Do You Feel Safe at Home: Yes Authorities Contacted: N/A Questionairres Past Medical History Past Medical History Have you ever been diagnosed with any of the following: Neurological Problems Transient Ischemic Attacks (TIA): No Seizures: No Cardiology Problems Hypercholesterolemia: Yes Congestive Heart Failure: No Hypertension: Yes Respiratory Problems Chronic Obstructive Pulmonary Disease (COPD): No Smoking: No Smoking Cessation Counseling: No Smoking Exposure: No Stomache/Intestinal Problems Hepatitis: No Obesity: Yes Genital/Urinary Problems Renal Disease: No Reproductive Problems Previous Pregnancies: Yes Musculoskeletal Problems Arthritis: Yes Endocrine Problems Diabetes Mellitus Type 1: No Diabetes Mellitus Type 2: Yes Other Problems Hospitalization: Yes Shingles: No Blood Transfusions: No Blood Transfusion Reaction: No Anesthesia Reactions: No Chicken Pox: Yes Cancer: No Subjective Visit Visit for: follow up visit, post op #2 (6 WK POST OP RT TKA ) and knee Immunization / Flu Flu Vaccine in the Last 12 Months: Yes Flu Vaccine Exclusion Criteria: Already Received History of Present Illness Chief complaint: F/U STIFFNESS Patient is a 64-year-old female with bilateral knee pain. She is doing well status post right total knee replacement. Pain is minimal but her knee is stiff. She is using a walker and ROM is 0-90 degrees. She has started physical therapy and notices significant improvement Personal History Red flag PMH: BMI and none BMI Counceling provided: Yes Pain Pain level (0-10): 4 Pain duration: COMES AND GOES Pain location: inside (medial), outside (lateral), anterior and posterior Pain quality: sharp, dull and aching Pain timing: night and increases with activity Associated signs & symptoms: stiffness and none Ambulatory data Ambulatory device: cane and walker Walking distance (blocks): 0 Walking distance (minutes): 10 Treatments Number of previous injections: 2 Improvement with previous injections: No Number of Physical Therapy sessions: 5 Improvement with PT: No Improvement with NSAIDS: no Review of Systems Review of Systems: All systems negative unless otherwise noted in HPI.
== END 2024-11-24 10:15 | disposition home or self-care (01) ==
LOC: HODSRG 10:00
PROVIDERS: PCP Physician Assistant; Referring Provider Physician Assistant; Supervising Provider Orthopaedic Surgery Adult Reconstructive Orthopaedic Surgery; Visit Provider Orthopaedic Surgery Adult Reconstructive Orthopaedic Surgery
DX: M17.0 Bilateral primary osteoarthritis of knee (principal); M25.562 Pain in left knee; M25.561 Pain in right knee; Z96.651 Presence of right artificial knee joint; I10 Essential (primary) hypertension; E78.00 Pure hypercholesterolemia, unspecified; E11.9 Type 2 diabetes mellitus without complications
CPT/HCPCS: 99213; G0463

== ENCOUNTER 2024-12-08 09:30 | Outpatient (RCR) | payer MEDICAID, SELFPAY ==
--- NOTE | 2024-11-10 08:35 | PT.OIERPT ---
PT OP Initial Eval Patient Information Outpatient Physical Therapy Treatment Date: 11/10/24 Visit Reasons: RIGHT KNEE SURGERY Medical Diagnosis: M17.11 Treatment Dx #1: R knee pain Treatment Dx #2: Decreased R knee ROM Start of Care: 11/10/24 Date of Onset: 09/26/24 DOS Smoking Status Smoking Status: Never smoker Initial Assessment Subjective: Pt is 64 yr old [place] islander speaking female s/p R TKA presents to therapy ambulating with FWW slowly. Pt reports pain and swelling and that she is not moving the knee much at home. She is ambuting HH and limited distances. And she hasn't been able to take anything for pain due to nausea and vomiting. 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 Pt requires skilled therapy to meet goals and has poor/fair rehab potential. Eval followed by HEP of flexion stretches AAROM with printout. She may be limited by not being able to take anything for pain due to GI issues and nausea. 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 Ind with HEP 2. Improved R knee ROM to full extension and 105 deg flexion 3. Pt will ambulate community distances without assistive device Treatment Plan ?1. Manual therapy ? 2. Therex ? 3. Modalities as indicated, moist heat, ice, estim Frequency and Duration: 2-3x a week for 18 visits plus the eval Certification Dates: 11/10/24 to 02/08/25 Procedure Charges OP PT Eval Mod Complex 30 minutes: Yes
--- NOTE | 2024-11-14 08:09 | PTNOTE_ITS ---
PT Outpatient Daily Note OP Daily Note Outpatient Physical Therapy Treatment Date: 11/14/24 Visit Reasons: RIGHT KNEE SURGERY Subjective: Same as time of evaluation Objective: See F/S for therex MT: PROM into flexion x13' to about 80 deg Assessment: Limited ROM into flexion and extension consistent with adaptive shortening Plan: Improve R knee ROM Length of Time (minutes) of Treatment: 30 Minutes Procedure Charges Therapeutic Exercise 15 minutes: Yes Manual Field Horticultural Specialty Grower 15 minutes: Yes
--- NOTE | 2024-11-16 08:55 | PT.ODAYNRPT ---
PT Outpatient Daily Note OP Daily Note Outpatient Physical Therapy Treatment Date: 11/16/24 Visit Reasons: RIGHT KNEE SURGERY Subjective: Pt c/o stiff and painful knee. Objective: Please see flow sheet for ther ex list. Assessment: Pt highly guarded during PROM into flexion due to pain response. Plan: Continue with POC. Length of Time (minutes) of Treatment: 30 Minutes Procedure Charges Therapeutic Exercise 30 minutes: Yes
--- NOTE | 2024-11-17 09:38 | PT.ODAYNRPT ---
PT Outpatient Daily Note OP Daily Note Outpatient Physical Therapy Treatment Date: 11/17/24 Visit Reasons: RIGHT KNEE SURGERY Subjective: R knee pain with bending Objective: See F/S for therex MT: PROM into flexion x10' to about 80 deg Ice: x5' post session Assessment: Improved PROM into flexion to about 80 deg with manual therapy. Limited ROM into flexion and extension consistent with adaptive shortening Plan: Improve R knee ROM Length of Time (minutes) of Treatment: 30 Minutes Procedure Charges Therapeutic Exercise 15 minutes: Yes Manual Production Control Coordinator 15 minutes: Yes
--- NOTE | 2024-11-22 10:00 | PT.ODAYNRPT ---
PT Outpatient Daily Note OP Daily Note Outpatient Physical Therapy Treatment Date: 11/22/24 Visit Reasons: RIGHT KNEE SURGERY Subjective: Pt c/o knee stiffness and soreness. Objective: Please see flow sheet for ther ex list. Assessment: Pt highly guarded during PROM into knee flexion resulting in poor mobility. Plan: Continue with pOC. Length of Time (minutes) of Treatment: 30 Minutes Procedure Charges Therapeutic Exercise 30 minutes: Yes
--- NOTE | 2024-11-24 18:25 | PTNOTE_ITS ---
PT Outpatient Daily Note OP Daily Note Outpatient Physical Therapy Treatment Date: 11/24/24 Visit Reasons: RIGHT KNEE SURGERY Subjective: R knee pain with bending Objective: See F/S for therex MT: PROM into flexion x10' to about 80 deg Ice: x5' post session Assessment: Improved PROM into flexion to about 80 deg with manual therapy limited by pain and guarding. Limited ROM into flexion and extension consistent with adaptive shortening/scar tissue adhesions Plan: Improve R knee ROM Length of Time (minutes) of Treatment: 30 Minutes Procedure Charges Therapeutic Exercise 15 minutes: Yes Manual Dairy Nutritionist 15 minutes: Yes
--- NOTE | 2024-11-28 16:10 | PT.ODAYNRPT ---
PT Outpatient Daily Note OP Daily Note Outpatient Physical Therapy Treatment Date: 11/28/24 Visit Reasons: RIGHT KNEE SURGERY Subjective: Pt c/o knee being stiff and painful. Objective: Please see flow sheet for ther ex list. Assessment: Pt highly guarded during PROM resulting in poor range. Plan: Continue with POC. Length of Time (minutes) of Treatment: 30 Minutes Procedure Charges Therapeutic Exercise 30 minutes: Yes
--- NOTE | 2024-11-30 17:20 | PT.ODAYNRPT ---
PT Outpatient Daily Note OP Daily Note Outpatient Physical Therapy Treatment Date: 11/30/24 Visit Reasons: RIGHT KNEE SURGERY Subjective: R knee pain with bending Objective: See F/S for therex MT: PROM into flexion x10' to about 85 deg Ice: x5' post session Assessment: Improved PROM into flexion to about 85 deg with manual therapy limited by pain and guarding. 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
--- NOTE | 2024-12-06 10:06 | PT.ODAYNRPT ---
PT Outpatient Daily Note OP Daily Note Outpatient Physical Therapy Treatment Date: 12/06/24 Visit Reasons: RIGHT KNEE SURGERY Subjective: Pt reports progress with knee, it is easier for her to get in and out of her car. Objective: Please see flow sheet for ther ex list. Assessment: Performed PROM into knee flexion per pt tolerance. ROM of R knee continues to improve. Plan: Continue with POC. Length of Time (minutes) of Treatment: 30 Minutes Procedure Charges Therapeutic Exercise 30 minutes: Yes
--- NOTE | 2024-12-08 10:16 | PT.ODAYNRPT ---
PT Outpatient Daily Note OP Daily Note Outpatient Physical Therapy Treatment Date: 12/08/24 Visit Reasons: RIGHT KNEE SURGERY Subjective: Pt reports progress with R knee flexibility. Objective: Please see flow sheet for ther ex list. Assessment: Pt instructed and educated on performing knee flexion stretch sitting, pt agreed. Plan: Continue wit POC, assess response to HEP. Length of Time (minutes) of Treatment: 30 Minutes Procedure Charges Therapeutic Exercise 30 minutes: Yes
== END 2024-12-10 23:59 | disposition home or self-care (01) ==
LOC: CPTX 09:30
PROVIDERS: PCP Orthopaedic Surgery Adult Reconstructive Orthopaedic Surgery; Referring Provider Orthopaedic Surgery Adult Reconstructive Orthopaedic Surgery; Visit Provider Orthopaedic Surgery Adult Reconstructive Orthopaedic Surgery
DX: M25.561 Pain in right knee (principal); R60.9 Edema, unspecified; M17.11 Unilateral primary osteoarthritis, right knee; Z96.651 Presence of right artificial knee joint; I10 Essential (primary) hypertension; E11.9 Type 2 diabetes mellitus without complications
CPT/HCPCS: 97110; 97140; 97162

== ENCOUNTER 2024-12-16 11:05 | Outpatient (AMB) | payer MEDICAID, SELFPAY ==
[2024-12-16 11:23] VITALS: BP 113/68; PULSE 72; RESP 17; TEMP 37.1; O2SAT 95; BMI 31.1
--- NOTE | 2024-12-16 11:23 | PD.ORTHCLVIS ---
Vital signs 12/16/24 11:23 Height 1.52 m Height Method Stated Weight 71.866 kg Weight Measurement Method Standing Scale BMI 31.1 BP 113/68 Blood Pressure Source Automatic Cuff Blood Pressure Location Right Upper Arm Position Sitting Respiration 17 Pulse 72 Pulse Source Monitor Temp 98.7 F Temp Source Temporal Artery Scan Pulse Oximetry (%) 95 Oxygen Delivery Method Room Air Med/Allergies Allergies & Medications Allergies No Known Allergies Allergy (Verified 12/16/24 11:24) Medication Reconciliation lovastatin 20 mg tablet (Mevacor) 20 mg PO HS #0 tabs 05/09/14 [History Confirmed 12/16/24] metformin 500 mg tablet (Glucophage) 500 mg PO BIDAC #0 tabs 05/09/14 [History Confirmed 12/16/24] amlodipine 5 mg tablet 5 mg PO QDAY 01/01/24 [History Confirmed 12/16/24] dapagliflozin propanediol 10 mg tablet (Farxiga) 10 mg PO QDAY 01/01/24 [History Confirmed 12/16/24] dapagliflozin propanediol 10 mg tablet (Farxiga) 10 mg PO QDAY 09/22/24 [History Confirmed 12/16/24] lisinopril 40 mg tablet 40 mg PO QDAY 09/22/24 [History Confirmed 12/16/24] acetaminophen 500 mg tablet (Acetaminophen Extra Strength) 1,000 mg (2 x 500 mg) PO Q6H PRN pain #90 tabs 09/26/24 [Rx Confirmed 12/16/24] acetaminophen 500 mg tablet (Acetaminophen Extra Strength) 1,000 mg (2 x 500 mg) PO Q6H PRN pain #90 tabs 09/28/24 [Rx Confirmed 12/16/24] aspirin 81 mg tablet,delayed release 81 mg PO BID #60 tabs 09/28/24 [Rx Confirmed 12/16/24] doxycycline hyclate 100 mg tablet 100 mg PO BID #14 tabs 09/28/24 [Rx Confirmed 12/16/24] gabapentin 300 mg capsule 300 mg PO .qhs #30 caps 09/28/24 [Rx Confirmed 12/16/24] sennosides 8.6 mg-docusate sodium 50 mg tablet (Senna-S) 1 tab-cap PO QDAY #30 tabs 09/28/24 [Rx Confirmed 12/16/24] cyclobenzaprine 5 mg tablet 5 mg PO QHS PRN muscle spasm #30 tabs 10/11/24 [Rx Confirmed 12/16/24] oxycodone 5 mg tablet 5 mg PO Q6H PRN pain #28 tabs 10/11/24 [Rx Confirmed 12/16/24] Exam Exam Patient is in no acute distress and is cooperative with the examination today. Breathing is nonlabored. In no respiratory distress. Bilateral extremities were evaluated and demonstrates sensation intact to light touch. Palpable pedal pulses are present. No significant edema is present. Bilateral hips were examined. The patient has no pain with log roll of the hips. Internal rotation to 30 degrees and external rotation to 30 degrees is painless. Negative FADIR. Right knee incisions clean dry intact. ROM is 0-95 degrees X-rays demonstrate a cementless total knee replacement in good alignment and position. This is from 10/28/2024 Assessment and Plan Problem List (1) Degenerative arthritis of knee, bilateral: Status: Acute Plan: Patient Is a pleasant 64-year-old female with bilateral knee pain and bilateral knee arthritis. 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 Her range of motion is significant improved and she can get to about 95 degrees. We discussed that she is on the borderline for a manipulation under anesthesia. She reports the range of motion Still is improving and she is happy with the way it is. She does not want a manipulation under anesthesia. We discussed this in great detail today. I do think that this is reasonable as her motion continues to improve and she is very happy with how she is doing We will see her in approximately 2 to 3 months for routine follow-up Office Procedures GNS Level of Care Nursing/Assessment Patient Status: Established Patient Nursing Assessment/Reassesment: Medication Reconciliation, Update PMH in EMR and Vital Signs Coordination of Care: Complex Care and Chronic Disease 1-5, Education Complex Pt/Fam, Consent,records obtained, informed consent, Results/Orders obtained and Staff clarify orders Special Needs: Language special needs (CONGOLESE ) Established Patient Charge Established Patient Point Assignment: 95 Established Patient Point Charge: EP Level 3 (80-115) MA Intake Visit Data Collection New Patient or Established: Established Patient (seen at [facility] within 3 years) Reason for Visit:: FU RIGHT KNEE STIFFNESS/MOTION CHECK Seen by Clinical Staff ONLY (RN/MA): No Associate Manager Required: Yes PCP or OBGYN visit in last 3 months: Yes Hx Now: No Do You Feel Safe at Home: Yes Authorities Contacted: N/A Questionairres Past Medical History Past Medical History Have you ever been diagnosed with any of the following: Neurological Problems Transient Ischemic Attacks (TIA): No Seizures: No Cardiology Problems Hypercholesterolemia: Yes Congestive Heart Failure: No Hypertension: Yes Respiratory Problems Chronic Obstructive Pulmonary Disease (COPD): No Smoking: No Smoking Cessation Counseling: No Smoking Exposure: No Stomache/Intestinal Problems Hepatitis: No Obesity: Yes Genital/Urinary Problems Renal Disease: No Reproductive Problems Previous Pregnancies: Yes Musculoskeletal Problems Arthritis: Yes Endocrine Problems Diabetes Mellitus Type 1: No Diabetes Mellitus Type 2: Yes Other Problems Hospitalization: Yes Shingles: No Blood Transfusions: No Blood Transfusion Reaction: No Anesthesia Reactions: No Chicken Pox: Yes Cancer: No Subjective Visit Visit for: follow up visit and knee (RIGHT KNEE ) Immunization / Flu Flu Vaccine in the Last 12 Months: No Flu Vaccine Exclusion Criteria: Refused by Patient History of Present Illness Chief complaint: F/U STIFFNESS Patient is a 64-year-old female with bilateral knee pain. She is doing well status post right total knee replacement. She is here for motion check today. She had delayed physical therapy and started about 5 to 6 weeks after surgery. She has been working aggressively with therapy and has not returned motion. She can get To 95 degrees actively and 100 degrees when she pushes it Personal History Red flag PMH: none BMI Counceling provided: Yes Pain Pain level (0-10): 0 Pain duration: COMES AND GOES Pain location: inside (medial), outside (lateral), anterior and posterior Pain quality: sharp, dull and aching Pain timing: night and increases with activity Associated signs & symptoms: none Ambulatory data Ambulatory device: none Walking distance (blocks): 0 Walking distance (minutes): 10 Treatments Number of previous injections: 2 Improvement with previous injections: Yes Number of Physical Therapy sessions: 8 Improvement with PT: Yes Improvement with NSAIDS: n/a Review of Systems Review of Systems: All systems negative unless otherwise noted in HPI.
== END 2024-12-16 11:46 | disposition home or self-care (01) ==
LOC: HODSRG 11:05
PROVIDERS: Supervising Provider Orthopaedic Surgery Adult Reconstructive Orthopaedic Surgery; Visit Provider Orthopaedic Surgery Adult Reconstructive Orthopaedic Surgery
DX: M17.0 Bilateral primary osteoarthritis of knee (principal); M25.562 Pain in left knee; M25.561 Pain in right knee; Z96.651 Presence of right artificial knee joint; M24.661 Ankylosis, right knee; I10 Essential (primary) hypertension; E78.00 Pure hypercholesterolemia, unspecified; E11.9 Type 2 diabetes mellitus without complications
CPT/HCPCS: 99213; G0463

== ENCOUNTER 2025-01-05 15:30 | Outpatient (RCR) | payer MEDICAID, SELFPAY ==
--- NOTE | 2024-12-15 12:21 | PT.ODAYNRPT ---
PT Outpatient Daily Note OP Daily Note Outpatient Physical Therapy Treatment Date: 12/15/24 Visit Reasons: RT knee surgery Subjective: R knee pain with bending Objective: See F/S for therex Assessment: Improved PROM into flexion to about 85 deg with manual therapy limited by pain and guarding. Limited ROM into flexion and extension consistent with adaptive shortening/scar tissue adhesions Plan: Improve R knee ROM Length of Time (minutes) of Treatment: 30 Minutes Procedure Charges Therapeutic Exercise 30 minutes: Yes
--- NOTE | 2024-12-19 18:00 | PT.ODAYNRPT ---
PT Outpatient Daily Note OP Daily Note Outpatient Physical Therapy Treatment Date: 12/19/24 Visit Reasons: RT knee surgery Subjective: R knee pain with bending Objective: See F/S for therex Assessment: Improved PROM into flexion to about 85 deg with manual therapy limited by pain and guarding. Limited ROM into flexion and extension consistent with adaptive shortening/scar tissue adhesions Plan: Improve R knee ROM Length of Time (minutes) of Treatment: 30 Minutes Procedure Charges Therapeutic Exercise 30 minutes: Yes
--- NOTE | 2024-12-22 13:14 | PT.ODAYNRPT ---
PT Outpatient Daily Note OP Daily Note Outpatient Physical Therapy Treatment Date: 12/22/24 Visit Reasons: RT knee surgery Subjective: Pt reports R knee is doing better, has a follow up with surgeon last week. As per pt surgeon was content with her progress and took her off her list for manipulation. Objective: Please see flow sheet for ther ex list. Assessment: Performed PROM into knee flexion, pt guarded limiting ROM. Plan: Continue with POC, pt has one visit left. Length of Time (minutes) of Treatment: 30 Minutes Procedure Charges Therapeutic Exercise 30 minutes: Yes
--- NOTE | 2025-01-02 15:01 | PT.ODS1RPT ---
PT OP Progress/Discharge Note Date of Service: 01/02/25 Progress Note/DC Note Progress Note/Discharge Note: Progress Note Patient Information Visit Reasons: RT knee surgery Service Continue Service or Discharge: Continue Service Status Subjective: Overall better since starting therapy but continued R knee pain with bending Objective: R knee AROM: PROM: Flexion: 80 deg 90 deg Extension: full full Strength: Quads: 4/5 HS: 4/5 Gait: symmetrical pattern, flexed knees, decreased gait speed Assessment: Pt has attended / Rx visits with improved PROM into flexion to about 90 deg with manual therapy limited by pain and guarding. Limited ROM into flexion and extension consistent with adaptive shortening/scar tissue adhesions. She is ambulating community distances without assistive device to meet that goal. Plan: Extend POC by additional authorized visits x12 to improve R knee ROM Procedure Charges Therapeutic Exercise 30 minutes: Yes
--- NOTE | 2025-01-05 17:19 | PT.ODAYNRPT ---
PT Outpatient Daily Note OP Daily Note Outpatient Physical Therapy Treatment Date: 01/05/25 Visit Reasons: RT knee surgery Subjective: R knee pain with bending Objective: See F/S for therex MT: PROM into flexion x5' Assessment: Improved PROM into flexion to about 85 deg with manual therapy limited by pain and guarding. Limited ROM into flexion and extension consistent with adaptive shortening/scar tissue adhesions Plan: Improve R knee ROM Length of Time (minutes) of Treatment: 30 Minutes Procedure Charges Therapeutic Exercise 30 minutes: Yes
== END 2025-01-09 23:59 | disposition home or self-care (01) ==
LOC: CPTX 15:30
PROVIDERS: PCP Orthopaedic Surgery Adult Reconstructive Orthopaedic Surgery; Referring Provider Orthopaedic Surgery Adult Reconstructive Orthopaedic Surgery; Visit Provider Orthopaedic Surgery Adult Reconstructive Orthopaedic Surgery
DX: M25.561 Pain in right knee (principal); R60.9 Edema, unspecified; Z96.651 Presence of right artificial knee joint; I10 Essential (primary) hypertension; E11.9 Type 2 diabetes mellitus without complications; M17.11 Unilateral primary osteoarthritis, right knee
CPT/HCPCS: 97110

== ENCOUNTER 2025-02-08 16:00 | Outpatient (RCR) | payer MEDICAID, SELFPAY ==
--- NOTE | 2025-01-11 14:18 | PT.ODAYNRPT ---
PT Outpatient Daily Note OP Daily Note Outpatient Physical Therapy Treatment Date: 01/11/25 Visit Reasons: right knee surgery Subjective: Pt reports R knee is moving a little better notices her walking has improved. Objective: Please see flow sheet for ther ex list. Assessment: Pt guarded during PROM, can get ~90 deg of knee flexion. Plan: Continue with pOC. Length of Time (minutes) of Treatment: 30 Minutes Procedure Charges Therapeutic Exercise 30 minutes: Yes
--- NOTE | 2025-01-16 17:34 | PT.ODAYNRPT ---
PT Outpatient Daily Note OP Daily Note Outpatient Physical Therapy Treatment Date: 01/16/25 Visit Reasons: right knee surgery Subjective: R knee pain with bending Objective: See F/S for therex Assessment: Improved PROM into flexion to about 85 deg with manual therapy limited by pain and guarding. Limited ROM into flexion and extension consistent with adaptive shortening/scar tissue adhesions Plan: Improve R knee ROM Length of Time (minutes) of Treatment: 30 Minutes Procedure Charges Therapeutic Exercise 30 minutes: Yes
--- NOTE | 2025-01-19 15:42 | PT.ODAYNRPT ---
PT Outpatient Daily Note OP Daily Note Outpatient Physical Therapy Treatment Date: 01/19/25 Visit Reasons: right knee surgery Subjective: Overall better Objective: See F/S for therex Assessment: Improved strength of R knee with stairs and squatting. Improved PROM into flexion to about 85 deg with manual therapy limited by pain and guarding. Limited ROM into flexion and extension consistent with adaptive shortening/scar tissue adhesions Plan: Improve R knee ROM Length of Time (minutes) of Treatment: 30 Minutes Procedure Charges Therapeutic Exercise 30 minutes: Yes
--- NOTE | 2025-01-25 17:00 | PT.ODAYNRPT ---
PT Outpatient Daily Note OP Daily Note Outpatient Physical Therapy Treatment Date: 01/25/25 Visit Reasons: right knee surgery Subjective: Overall better strength of R knee Objective: See F/S for therex MT: PROM into flexion x5' Assessment: Improved strength of R knee with stairs and squatting. Improved PROM into flexion to about 85 deg with manual therapy limited by pain and guarding. Limited ROM into flexion and extension consistent with adaptive shortening/scar tissue adhesions Plan: Reassess Length of Time (minutes) of Treatment: 30 Minutes Procedure Charges Therapeutic Exercise 30 minutes: Yes
--- NOTE | 2025-01-30 16:29 | PT.ODAYNRPT ---
PT Outpatient Daily Note OP Daily Note Outpatient Physical Therapy Treatment Date: 01/30/25 Visit Reasons: right knee surgery Subjective: Pt reports R knee is doing ok, feels like she can not bend her knee as much as she would like but notices she is walking better. Objective: Please see flow sheet for ther ex list. Assessment: Performed PROM into knee flexion, pt guarded resulting in limited range. Plan: Continue with POC. Length of Time (minutes) of Treatment: 30 Minutes Procedure Charges Therapeutic Exercise 30 minutes: Yes
--- NOTE | 2025-02-02 15:41 | PT.ODAYNRPT ---
PT Outpatient Daily Note OP Daily Note Outpatient Physical Therapy Treatment Date: 02/02/25 Visit Reasons: right knee surgery Subjective: Pt reports R knee is progressing but slowly. Objective: Please see flow sheet for ther ex list. Assessment: Pt highly guarded during PROM into knee flexion. Plan: Continue with POC. Length of Time (minutes) of Treatment: 30 Minutes Procedure Charges Therapeutic Exercise 30 minutes: Yes
--- NOTE | 2025-02-08 17:50 | PT.ODS1RPT ---
PT OP Progress/Discharge Note Date of Service: 02/08/25 Progress Note/DC Note Progress Note/Discharge Note: DC Note Patient Information Visit Reasons: right knee surgery Service Continue Service or Discharge: Discharge Discharge Date: 02/08/25 Status Subjective: Overall better since starting therapy but now the non-surgical knee is hurting and limiting mobility Objective: R knee AROM: PROM: Flexion: 85 deg 90 deg Extension: full full Strength: Quads: 4/5 HS: 4/5 Gait: symmetrical pattern, flexed knees, decreased gait speed Assessment: Pt has attended 20 Rx visits with improved PROM into flexion to about 90 deg with manual therapy. Limited ROM into flexion and extension consistent with adaptive shortening/scar tissue adhesions and she is not making progress with that goal. She is ambulating community distances without assistive device to meet that goal. The other knee is limiting mobility and pain limits therex tolerance in the clinic. Pt has improved strength of R knee to squat and do stairs. Plan: D/C with HEP Procedure Charges Therapeutic Exercise 30 minutes: Yes
== END 2025-02-09 23:59 | disposition home or self-care (01) ==
LOC: CPTX 16:00
PROVIDERS: PCP Orthopaedic Surgery Adult Reconstructive Orthopaedic Surgery; Referring Provider Orthopaedic Surgery Adult Reconstructive Orthopaedic Surgery; Visit Provider Orthopaedic Surgery Adult Reconstructive Orthopaedic Surgery
DX: M25.561 Pain in right knee (principal); Z96.651 Presence of right artificial knee joint; M17.11 Unilateral primary osteoarthritis, right knee; I10 Essential (primary) hypertension; E11.9 Type 2 diabetes mellitus without complications
CPT/HCPCS: 97110

== ENCOUNTER 2025-03-28 10:36 | Outpatient (AMB) | payer MEDICAID, SELFPAY ==
--- NOTE | 2025-03-28 11:04 | ORTHONT_ITS ---
Vital signs 03/28/25 11:13 Height 1.52 m Height Method Measured Weight 79.379 kg Weight Measurement Method Standing Scale BMI 34.3 BP 147/81 H Blood Pressure Source Automatic Cuff Blood Pressure Location Left Upper Arm Position Sitting Respiration 18 Pulse 74 Pulse Source Monitor Temp 97.3 F Temp Source Temporal Artery Scan Pulse Oximetry (%) 95 Oxygen Delivery Method Room Air Med/Allergies Allergies & Medications Allergies No Known Allergies Allergy (Verified 03/28/25 11:14) Medication Reconciliation lovastatin 20 mg tablet (Mevacor) 20 mg PO HS #0 tabs 05/09/14 [History Confirme d 03/28/25] metformin 500 mg tablet (Glucophage) 500 mg PO BIDAC #0 tabs 05/09/14 [History Confirmed 03/28/25] amlodipine 5 mg tablet 5 mg PO QDAY 01/01/24 [History Confirmed 03/28/25] dapagliflozin propanediol 10 mg tablet (Farxiga) 10 mg PO QDAY 01/01/24 [History Confirmed 03/28/25] dapagliflozin propanediol 10 mg tablet (Farxiga) 10 mg PO QDAY 09/22/24 [History Confirmed 03/28/25] lisinopril 40 mg tablet 40 mg PO QDAY 09/22/24 [History Confirmed 03/28/25] acetaminophen 500 mg tablet (Acetaminophen Extra Strength) 1,000 mg (2 x 500 mg) PO Q6H PRN pain #90 tabs 09/26/24 [Rx Confirmed 03/28/25] acetaminophen 500 mg tablet (Acetaminophen Extra Strength) 1,000 mg (2 x 500 mg) PO Q6H PRN pain #90 tabs 09/28/24 [Rx Confirmed 03/28/25] aspirin 81 mg tablet,delayed release 81 mg PO BID #60 tabs 09/28/24 [Rx Confirmed 03/28/25] doxycycline hyclate 100 mg tablet 100 mg PO BID #14 tabs 09/28/24 [Rx Confirmed 03/28/25] gabapentin 300 mg capsule 300 mg PO .qhs #30 caps 09/28/24 [Rx Confirmed 03/13 01/04] sennosides 8.6 mg-docusate sodium 50 mg tablet (Senna-S) 1 tab-cap PO QDAY #30 tabs 09/28/24 [Rx Confirmed 03/28/25] cyclobenzaprine 5 mg tablet 5 mg PO QHS PRN muscle spasm #30 tabs 10/11/24 [Rx Confirmed 03/28/25] oxycodone 5 mg tablet 5 mg PO Q6H PRN pain #28 tabs 10/11/24 [Rx Confirmed 03/28/25] Exam Exam Patient is in no acute distress and is cooperative with the examination today. Breathing is nonlabored. In no respiratory distress. Bilateral extremities were evaluated and demonstrates sensation intact to light touch. Palpable pedal pulses are present. No significant edema is present. Bilateral hips were examined. The patient has no pain with log roll of the hips. Internal rotation to 30 degrees and external rotation to 30 degrees is painless. Negative FADIR. Right knee incisions clean dry intact. ROM is 0-95 degrees X-rays demonstrate a cementless total knee replacement in good alignment and position. This is from 10/28/2024 Assessment and Plan Problem List (1) Degenerative arthritis of knee, bilateral: Status: Acute Plan: Patient Is a pleasant 64-year-old female with bilateral knee pain and bilateral knee arthritis. She is doing well status post right total knee replacement. She would like a left knee cortisone injection today Recommend knee cortisone injection as patient would like to proceed with conservative treatment at this time. The risks and benefits of the procedure were reviewed with the patient and patient gave verbal consent to continue with the procedure. Procedure: performed by Dr. Smith Using sterile technique the left knee was thoroughly prepped with alcohol, and approximately 1 cc of Depo-Medrol 80mg/mL and 4 cc of 0.2% ropivacaine was injected without resistance into the medial tibial femoral joint space. The patient tolerated the procedure. Office Procedures GNS Level of Care Nursing/Assessment Patient Status: Established Patient Nursing Assessment/Reassesment: Medication Reconciliation, Orthostatic Vitals, Update PMH in EMR and Vital Signs Coordination of Care: Complex Care and Chronic Disease 1-5, Education Complex Pt/Fam, Consent,records obtained, informed consent, Results/Orders obtained and Staff clarify orders Special Needs: Language special needs Established Patient Charge Established Patient Point Assignment: 105 Established Patient Point Charge: EP Level 3 (80-115) Medication Given Medication Given Medication Given: Yes Documented Dose Given: 1 Route: Infiitration Medication Given Medication Given Medication Given: Yes Documented Dose Given: 4 Route: Infiitration Office Meds methylprednisolone acetate 80 mg/mL suspension for injection Performing Provider: Surendra Smith MD Performing Location: [facility] Administered by: Surendra Smith MD on 03/28/25 11:15 Dose Route Admin Location Dispensed Lot Number Expiration Date Pack age [facility] Maintenance Service Dispatcher 80 mg intra-articular KNEE 1 mL [id number] 12/10/26 [address]-6 [id number] [employer] ropivacaine (PF) 2 mg/mL (0.2 %) injection solution Performing Provider: Surendra Smiht MD Performing Location: [facility] Administered by: Surendra Smith MD on 03/28/25 11:15 Dose Route Admin Location Dispensed Lot Number Expiration Date Pack age [facility] Maintenance Service Dispatcher 20 mL Infiltration KNEE 20 mL [id number] 08/12/27 48593-848-33 [id number] [facility] Intake Visit Data Collection New Patient or Established: Established Patient (seen at [facility] within 3 years) Reason for Visit:: 3 MONTH LEFT KNEE INJECTION Seen by Clinical Staff ONLY (RN/MA): No Wardrobe Supervisor Required: Yes PCP or OBGYN visit in last 3 months: Yes Hx Now: No Do You Feel Safe at Home: Yes Authorities Contacted: N/A Questionairres Past Medical History Past Medical History Have you ever been diagnosed with any of the following: Neurological Problems Transient Ischemic Attacks (TIA): No Seizures: No Cardiology Problems Hypercholesterolemia: Yes Congestive Heart Failure: No Hypertension: Yes Respiratory Problems Chronic Obstructive Pulmonary Disease (COPD): No Smoking: No Smoking Cessation Counseling: No Smoking Exposure: No Stomache/Intestinal Problems Hepatitis: No Obesity: Yes Genital/Urinary Problems Renal Disease: No Reproductive Problems Previous Pregnancies: Yes Musculoskeletal Problems Arthritis: Yes Endocrine Problems Diabetes Mellitus Type 1: No Diabetes Mellitus Type 2: Yes Other Problems Hospitalization: Yes Shingles: No Blood Transfusions: No Blood Transfusion Reaction: No Anesthesia Reactions: No Chicken Pox: Yes Cancer: No Subjective Visit Visit for: follow up visit and knee (RIGHT KNEE ) Immunization / Flu Flu Vaccine in the Last 12 Months: No Flu Vaccine Exclusion Criteria: Refused by Patient History of Present Illness Chief complaint: F/U STIFFNESS Patient is a 64-year-old female with bilateral knee pain. She is doing well status post right total knee replacement. She is doing well and is very happy. She would like an injection of the left knee as she has significant left knee pain Personal History Red flag PMH: none BMI Counceling provided: Yes Pain Pain level (0-10): 0 Pain duration: COMES AND GOES Pain location: inside (medial), outside (lateral), anterior and posterior Pain quality: sharp, dull and aching Pain timing: night and increases with activity Associated signs & symptoms: none Ambulatory data Ambulatory device: none Walking distance (blocks): 0 Walking distance (minutes): 10 Treatments Number of previous injections: 2 Improvement with previous injections: Yes Number of Physical Therapy sessions: 8 Improvement with PT: Yes Improvement with NSAIDS: n/a Review of Systems Review of Systems: All systems negative unless otherwise noted in HPI.
[2025-03-28 11:13] VITALS: BP 147/81; PULSE 74; RESP 18; TEMP 36.3; O2SAT 95; BMI 34.3
== END 2025-03-28 11:12 | disposition home or self-care (01) ==
LOC: HODSRG 10:36
PROVIDERS: Supervising Provider Orthopaedic Surgery Adult Reconstructive Orthopaedic Surgery; Visit Provider Orthopaedic Surgery Adult Reconstructive Orthopaedic Surgery
DX: M17.0 Bilateral primary osteoarthritis of knee (principal); M25.562 Pain in left knee; M25.561 Pain in right knee; Z96.651 Presence of right artificial knee joint; I10 Essential (primary) hypertension; E78.00 Pure hypercholesterolemia, unspecified; E11.9 Type 2 diabetes mellitus without complications
CPT/HCPCS: 20610; 99213; J1010; J2795; G0463

== ENCOUNTER 2025-06-27 08:16 | Outpatient (AMB) | payer MEDICARE, MEDICAID, SELFPAY ==
--- NOTE | 2025-06-27 08:27 | ORTHONT_ITS ---
Vital signs 06/27/25 08:33 Height 1.52 m Height Method Stated Weight 80.739 kg Weight Measurement Method Standing Scale BMI 34.9 BP 149/82 H Blood Pressure Source Automatic Cuff Blood Pressure Location Left Upper Arm Position Sitting Respiration 18 Pulse 85 Pulse Source Monitor Temp 96.5 F L Temp Source Temporal Artery Scan Pulse Oximetry (%) 95 Oxygen Delivery Method Room Air Med/Allergies Allergies & Medications Allergies No Known Allergies Allergy (Verified 06/27/25 08:33) Medication Reconciliation lovastatin 20 mg tablet (Mevacor) 20 mg PO HS #0 tabs 05/09/14 [History Confirme d 06/27/25] metformin 500 mg tablet (Glucophage) 500 mg PO BIDAC #0 tabs 05/09/14 [History Confirmed 06/27/25] amlodipine 5 mg tablet 5 mg PO QDAY 01/01/24 [History Confirmed 06/27/25] dapagliflozin propanediol 10 mg tablet (Farxiga) 10 mg PO QDAY 01/01/24 [History Confirmed 06/27/25] dapagliflozin propanediol 10 mg tablet (Farxiga) 10 mg PO QDAY 09/22/24 [History Confirmed 06/27/25] lisinopril 40 mg tablet 40 mg PO QDAY 09/22/24 [History Confirmed 06/27/25] acetaminophen 500 mg tablet (Acetaminophen Extra Strength) 1,000 mg (2 x 500 mg) PO Q6H PRN pain #90 tabs 09/26/24 [Rx Confirmed 06/27/25] acetaminophen 500 mg tablet (Acetaminophen Extra Strength) 1,000 mg (2 x 500 mg) PO Q6H PRN pain #90 tabs 09/28/24 [Rx Confirmed 06/27/25] aspirin 81 mg tablet,delayed release 81 mg PO BID #60 tabs 09/28/24 [Rx Confirmed 06/27/25] doxycycline hyclate 100 mg tablet 100 mg PO BID #14 tabs 09/28/24 [Rx Confirmed 06/27/25] gabapentin 300 mg capsule 300 mg PO .qhs #30 caps 09/28/24 [Rx Confirmed 06/12 01/04] sennosides 8.6 mg-docusate sodium 50 mg tablet (Senna-S) 1 tab-cap PO QDAY #30 tabs 09/28/24 [Rx Confirmed 06/27/25] cyclobenzaprine 5 mg tablet 5 mg PO QHS PRN muscle spasm #30 tabs 10/11/24 [Rx Confirmed 06/27/25] oxycodone 5 mg tablet 5 mg PO Q6H PRN pain #28 tabs 10/11/24 [Rx Confirmed 06/27/25] Exam Exam Patient is in no acute distress and is cooperative with the examination today. Breathing is nonlabored. In no respiratory distress. Bilateral extremities were evaluated and demonstrates sensation intact to light touch. Palpable pedal pulses are present. No significant edema is present. Bilateral hips were examined. The patient has no pain with log roll of the hips. Internal rotation to 30 degrees and external rotation to 30 degrees is painless. Negative FADIR. Right knee incisions clean dry intact. ROM is 0-95 degrees X-rays demonstrate a cementless total knee replacement in good alignment and position. This is from 10/28/2024 Assessment and Plan Problem List (1) Degenerative arthritis of knee, bilateral: Status: Acute Plan: Patient Is a pleasant 64-year-old female with bilateral knee pain and bilateral knee arthritis. She is doing well status post right total knee replacement. She would like a left knee cortisone injection today Recommend knee cortisone injection as patient would like to proceed with conservative treatment at this time. The risks and benefits of the procedure were reviewed with the patient and patient gave verbal consent to continue with the procedure. Procedure: performed by Dr. Smith Using sterile technique the left knee was thoroughly prepped with alcohol, and approximately 1 cc of Depo-Medrol 80mg/mL and 4 cc of 0.2% ropivacaine was injected without resistance into the medial tibial femoral joint space. The patient tolerated the procedure. Advanced Care Planning Discussion Advance care planning discussed with:: patient Office Procedures GNS Level of Care Nursing/Assessment Patient Status: Established Patient Nursing Assessment/Reassesment: Medication Reconciliation, Update PMH in EMR and Vital Signs Coordination of Care: Complex Care and Chronic Disease 1-5, Education Complex Pt/Fam, Consent,records obtained, informed consent, Results/Orders obtained and Staff clarify orders Special Needs: Language special needs Established Patient Charge Established Patient Point Assignment: 95 Established Patient Point Charge: EP Level 3 (80-115) Surgical Proc/IM SQ injection Minor Surgical Procedure: Yes (LEFT KNEE INJECTION) Medication Given Medication Given Medication Given: Yes Documented Dose Given: 1 Route: Infiitration Medication Given Medication Given Medication Given: Yes Documented Dose Given: 4 Route: Infiitration Office Meds methylprednisolone acetate 80 mg/mL suspension for injection Performing Provider: Surendra Smith MD Performing Location: [facility] Administered by: Surendra Smith MD on 06/27/25 08:51 Dose Route Admin Location Dispensed Lot Number Expiration Date Pack age [facility] [employer] 80 mg intra-articular 1 mL [id number] 03/11/27 [address]-8 [id number] [employer] ropivacaine (PF) 2 mg/mL (0.2 %) injection solution Performing Provider: Surendra Smith MD Performing Location: [facility] Administered by: Surendra Smith MD on 06/27/25 08:51 Dose Route Admin Location Dispensed Lot Number Expiration Date Pack age [facility] [employer] 20 mL Infiltration 20 mL [id number] 12/09/26 8296-3966-74 [id number] [facility] Intake Visit Data Collection New Patient or Established: Established Patient (seen at [facility] within 3 years) Reason for Visit:: 3 MONTH LEFT KNEE INJECTION Seen by Clinical Staff ONLY (RN/MA): No Animal Treatment Investigator Required: Yes PCP or OBGYN visit in last 3 months: Yes Hx Now: No Do You Feel Safe at Home: Yes Authorities Contacted: N/A Questionairres Past Medical History Past Medical History Have you ever been diagnosed with any of the following: Neurological Problems Transient Ischemic Attacks (TIA): No Seizures: No Cardiology Problems Hypercholesterolemia: Yes Congestive Heart Failure: No Hypertension: Yes Respiratory Problems Chronic Obstructive Pulmonary Disease (COPD): No Smoking: No Smoking Cessation Counseling: No Smoking Exposure: No Stomache/Intestinal Problems Hepatitis: No Obesity: Yes Genital/Urinary Problems Renal Disease: No Reproductive Problems Previous Pregnancies: Yes Musculoskeletal Problems Arthritis: Yes Endocrine Problems Diabetes Mellitus Type 1: No Diabetes Mellitus Type 2: Yes Other Problems Hospitalization: Yes Shingles: No Blood Transfusions: No Blood Transfusion Reaction: No Anesthesia Reactions: No Chicken Pox: Yes Cancer: No Subjective Visit Visit for: follow up visit and knee (RIGHT KNEE ) Immunization / Flu Flu Vaccine in the Last 12 Months: No Flu Vaccine Exclusion Criteria: Refused by Patient History of Present Illness Chief complaint: 3MTH L KNEE INJECTION Patient is a 65-year-old female with bilateral knee pain. She is doing well status post right total knee replacement. She is doing well and is very happy. She would like an injection of the left knee as she has significant left knee pain Personal History Red flag PMH: none BMI Counceling provided: Yes Pain Pain level (0-10): 0 Pain duration: COMES AND GOES Pain location: inside (medial), outside (lateral), anterior and posterior Pain quality: sharp, dull and aching Pain timing: night and increases with activity Associated signs & symptoms: none Ambulatory data Ambulatory device: none Walking distance (blocks): 0 Walking distance (minutes): 10 Treatments Number of previous injections: 2 Improvement with previous injections: Yes Number of Physical Therapy sessions: 8 Improvement with PT: Yes Improvement with NSAIDS: n/a Review of Systems Review of Systems: All systems negative unless otherwise noted in HPI.
[2025-06-27 08:33] VITALS: BP 149/82; PULSE 85; RESP 18; TEMP 35.8; O2SAT 95; BMI 34.9
== END 2025-06-27 08:59 | disposition home or self-care (01) ==
LOC: HODSRG 08:16
PROVIDERS: Supervising Provider Orthopaedic Surgery Adult Reconstructive Orthopaedic Surgery; Visit Provider Orthopaedic Surgery Adult Reconstructive Orthopaedic Surgery
DX: M17.0 Bilateral primary osteoarthritis of knee (principal); Z28.21 Immunization not carried out because of patient refusal
CPT/HCPCS: 20610; 99213; J1010; J2795; G0463